=== PATIENT | female | born 1960 | race Caucasian/White ===

== ENCOUNTER 2020-09-24 07:56 | Day surgery (SDC) | payer BC ==
[2020-09-24] MEDS ORDERED: Lidocaine 2% 100 MG/5 ML Syringe IVPUSH ONE (07:57)
[2020-09-24] MEDS ORDERED: Midazolam 1 MG/ML 2 ML SDV ONE (08:53)
[2020-09-24] MEDS ORDERED: Propofol 200 MG/20 ML SDV ONE (08:53)
[2020-09-24] MEDS ORDERED: Sodium Chloride 0.9% 10 ML Syringe FLUSH PRN (09:00)
[2020-09-24] MEDS ORDERED: Lactated Ringers 1,000 ML IV SCH (09:00)
--- NOTE | 2020-09-24 09:07 | PCM.PN ---
- General Info Date of Service: 09/24/20 - Review of Systems Systems Review Comment:: 59 y/o female here for screening colonoscopy. She is medically stable to proceed. Her recent H and P is reviewed and no significant changes are noted. I have discussed the proposed colonoscopy with the patient. Risks such as but not limited to bleeding and GI injury discussed and she agrees to proceed. - Patient Data Vitals - Most Recent: Last Vital Signs Temp 96.6 F L 09/24/20 08:03 Pulse 81 09/24/20 08:03 Resp 18 09/24/20 08:03 BP 154/85 H 09/24/20 08:03 Pulse Ox 97 09/24/20 08:03 Weight - Most Recent: 113.398 kg Med Orders - Current: Current Medications Lactated Ringer's (Ringers, Lactated) 1,000 mls @ 50 mls/hr IV ASDIRECTED COUNT INCLUDES THE [facility] Last Admin: 09/24/20 08:29 Dose: 50 mls/hr Documented by: Sodium Chloride (Sodium Chloride 0.9% 10 Ml Syringe) 10 ml FLUSH Q8HR PRN PRN Reason: keep vein open Discontinued Medications Midazolam HCl (Midazolam 1 Mg/Ml 2 Ml Sdv) Confirm Administered Dose 2 mg .ROUTE .STK-MED ONE Stop: 09/24/20 08:54 Propofol (Propofol 200 Mg/20 Ml Sdv) Confirm Administered Dose 400 mg .ROUTE .STK-MED ONE Stop: 09/24/20 08:54 Sepsis Event Note - Focused Exam Vital Signs: Vital Signs Temp Pulse Resp BP Pulse Ox 09/24/20 08:03 96.6 F L 81 18 154/85 H 97 - Problem List Review Problem List Initiated/Reviewed/Updated: Yes - My Orders Last 24 Hours: My Active Orders 09/24/20 Breakfast Nothing Per Oral Diet [DIET] 09/24/20 09:00 Patient to Empty Bladder [RC] ASDIRECTED Peripheral IV Care [RC] . DIRECTED Lactated Ringers [Ringers, Lactated] 1,000 ml IV ASDIRECTED Sodium Chloride 0.9% [Saline Flush] 10 ml FLUSH Q8HR PRN Peripheral IV Insertion Adult [OM.PC] Routine 09/24/20 09:45 Verify Patient Consent Obtain [RC] ASDIRECTED - Assessment Assessment:: Colon Cancer Screening - Plan Plan:: Colonoscopy
--- NOTE | 2020-09-24 09:33 | PCM.OPNOTE ---
- General Post-Op/Procedure Note Date of Surgery/Procedure: 09/24/20 Operative Procedure(s): Colonoscopy Findings: Normal Colon Pre Op Diagnosis: Colon Cancer Screening Post-Op Diagnosis: Normal Colon Anesthesia Technique: MAC Primary Surgeon: Eric Chu Pathology: none EBL in mLs: 0 Complications: None Condition: Good
[2020-09-24] MEDS ORDERED: Ondansetron 4 MG/2 ML SDV IVPUSH PRN (10:07)
--- NOTE | 2020-09-24 14:04 | OR ---
DATE OF SURGERY: 09/24/2020 SURGEON: Eric Chu MD PREOPERATIVE DIAGNOSIS: Colon cancer screening. POSTOPERATIVE DIAGNOSIS: Normal colon. OPERATION PERFORMED: Colonoscopy. INDICATIONS FOR SURGERY: This 59-year-old female presents today for colon screening colonoscopy. It has been approximately 10 years since her last colonoscopy. FINDINGS: The patient's colon appears normal. No signs of polyps or inflammation is seen. DESCRIPTION OF PROCEDURE: The patient is taken to the operating room. She was given intravenous sedation and with her in the left lateral decubitus position, digital rectal exam was performed showing no rectal masses. The Olympus colonoscope was inserted into the rectum. Retroflexed examination of the rectal canal is performed. The scope was then carefully advanced under direct visualization through the entire length of the colon until the cecum is reached. Cecal acquisition is confirmed by noting the normal internal cecal anatomy including the appendiceal orifice and the ileocecal valve. The ileocecal valve was cannulated and the terminal ileum examined and appeared normal. The scope was then slowly withdrawn sequentially re-examining the colonic segments until the entire colon and rectum had been fully examined. The scope was removed and the patient was taken from the operating room in satisfactory condition. ESTIMATED BLOOD LOSS: Zero. COMPLICATIONS: None. PROGNOSIS: Good. /[id number]/MODL
== END 2020-09-24 11:40 | disposition home or self-care (01) ==
LOC: KA.SDS 07:56
PROVIDERS: ATTEND Surgery
DX: Z12.11 Encounter for screening for malignant neoplasm of colon (principal); E11.9 Type 2 diabetes mellitus without complications; R73.02 Impaired glucose tolerance (oral); I10 Essential (primary) hypertension; Z87.891 Personal history of nicotine dependence
CPT/HCPCS: 00812; J2250; J2405; J2704; J7120

== ENCOUNTER 2021-09-13 18:18 | Emergency (ER) | payer BC ==
[2021-09-13] MEDS: Sodium Chloride 0.9% 1,000 ML IV ONE (18:40)
[2021-09-13] MEDS: Ketorolac 30 MG/ML SDV IVPUSH ONE (18:41)
[2021-09-13 19:23] LABS: ANION GAP 13.6 mmol/L (5-15)
[2021-09-13] MEDS: traMADol 50 MG Tab PO ONE (19:57)
== END 2021-09-13 20:00 | disposition home or self-care (01) ==
LOC: KA.ED 18:18
DX: N13.2 Hydronephrosis with renal and ureteral calculous obstruction (principal); E11.9 Type 2 diabetes mellitus without complications; Z79.84 Long term (current) use of oral hypoglycemic drugs
CPT/HCPCS: 36415; 74176; 80053; 81001; 83690; 85025; 96374; 99284; 99284-25; J1885; J7030

== ENCOUNTER 2023-06-30 09:59 | Emergency (ER) | payer BC ==
[2023-06-30 10:52] LABS: BASOPHILS ABSOLUTE AUTO 0.03 10^3/uL (0.00-0.10); BASOPHILS PERCENT AUTO 0.3 % (0.0-1.0); EOSINOPHILS ABSOLUTE AUTO 0.24 10^3/uL (0.10-0.30); EOSINOPHILS PERCENT AUTO 2.7 % (1.0-3.0); HEMATOCRIT 40.2 % (37.0-47.0); HEMOGLOBIN 12.9 g/dL (12.0-16.0); IMMATURE GRAN ABSOLUTE AUTO 0.02 10^3/uL (0.00-0.50); IMMATURE GRAN PERCENT AUTO 0.2 % (0.0-5.0); LYMPHOCYTES ABSOLUTE AUTO 2.51 10^3/uL (1.00-4.00); LYMPHOCYTES PERCENT AUTO 27.9 % (20.0-40.0); MEAN CORPUSCULAR HEMOGLOBIN 27.9 pg (27.0-31.0); MEAN CORPUSCULAR HGB CONC 32.1 g/dL (32.0-36.0); MEAN PLATELET VOLUME 9.7 fL (7.4-10.4); MONOCYTES ABSOLUTE AUTO 0.66 10^3/uL (0.10-0.80); MONOCYTES PERCENT AUTO 7.3 % (2.0-8.0); NEUTROPHILS ABSOLUTE AUTO 5.53 10^3/uL (2.50-7.00); NEUTROPHILS PERCENT AUTO 61.6 % (50.0-70.0); PLATELET COUNT,PLT 275 10^3/uL (150-400); RED BLOOD CELL COUNT 4.62 10^6/uL (3.80-5.50); RED CELL DISTRIBUTION WIDTH 13.4 % (11.5-14.5); WHITE BLOOD CELL COUNT,WBC 8.99 10^3/uL (5.00-10.00)
[2023-06-30 11:10] LABS: ALBUMIN 3.53 g/dL (3.40-5.00); ANION GAP 14.5 mmol/L (5-15); BILIRUBIN TOTAL 0.5 mg/dL (0.2-1.0); CALCIUM 8.5 mg/dL (8.7-10.3); CARBON DIOXIDE,CO2 26.9 mmol/L (21.0-32.0); CREATININE 0.88 mg/dL (0.51-1.17); EST CRCL DRUG DOSING (CG) 57.97 mL/min; POTASSIUM,K 4.4 mmol/L (3.5-5.1); PROTEIN TOTAL,TP 7.3 g/dL (6.4-8.2)
[2023-06-30] MEDS: diphenhydrAMINE 50 MG/ML SDV IVPUSH ONE (11:18)
[2023-06-30] MEDS: Ketorolac 30 MG/ML SDV IVPUSH ONE (11:18)
[2023-06-30] MEDS: Sodium Chloride 0.9% 1,000 ML IV ONE (11:18)
[2023-06-30] MEDS: Ondansetron 4 MG/2 ML SDV IVPUSH ONE (11:19)
== END 2023-06-30 13:25 | disposition home or self-care (01) ==
LOC: KA.ED 09:59
DX: R51.9 Headache, unspecified (principal); R11.0 Nausea; E11.9 Type 2 diabetes mellitus without complications; Z79.899 Other long term (current) drug therapy; Z79.84 Long term (current) use of oral hypoglycemic drugs; Z86.19 Personal history of other infectious and parasitic diseases
CPT/HCPCS: 36415; 80053; 84484; 85025; 96374; 96375; 99284-25; J1200; J1885; J2405; J7030

== ENCOUNTER 2024-09-13 07:25 | Emergency (ER) | payer BC ==
[2024-09-13] MEDS ORDERED: Sodium Chloride 0.9% 10 ML Syringe FLUSH PRN (07:52)
[2024-09-13 08:09] LABS: BASOPHILS ABSOLUTE AUTO 0.03 10^3/uL (0.00-0.10); BASOPHILS PERCENT AUTO 0.2 % (0.0-1.0); EOSINOPHILS ABSOLUTE AUTO 0.22 10^3/uL (0.10-0.30); EOSINOPHILS PERCENT AUTO 1.6 % (1.0-3.0); HEMOGLOBIN 13.4 g/dL (12.0-16.0); IMMATURE GRAN ABSOLUTE AUTO 0.06 10^3/uL (0.00-0.04); IMMATURE GRAN PERCENT AUTO 0.4 % (0.0-0.4); MEAN CORPUSCULAR HEMOGLOBIN 26.9 pg (27.0-31.0); MEAN CORPUSCULAR HGB CONC 31.9 g/dL (32.0-36.0); MEAN CORPUSCULAR VOLUME 84.3 fL (82.0-92.0); MEAN PLATELET VOLUME 9.6 fL (7.4-10.4); MONOCYTES ABSOLUTE AUTO 0.83 10^3/uL (0.10-0.80); MONOCYTES PERCENT AUTO 6.2 % (2.0-8.0); NEUTROPHILS ABSOLUTE AUTO 8.01 10^3/uL (2.50-7.00); NEUTROPHILS PERCENT AUTO 59.6 % (50.0-70.0); PLATELET COUNT,PLT 278 10^3/uL (150-400); RED BLOOD CELL COUNT 4.98 10^6/uL (3.80-5.50); RED CELL DISTRIBUTION WIDTH 15.1 % (11.5-14.5); WHITE BLOOD CELL COUNT,WBC 13.45 10^3/uL (5.00-10.00)
[2024-09-13 08:30] LABS: ALANINE AMINOTRANSFERASE,ALT 53 U/L (14-63); ALBUMIN 3.26 g/dL (3.40-5.00); ALKALINE PHOSPHATASE 123 U/L (46-116); ANION GAP 11.5 mmol/L (5-15); ASPARTATE AMNIOTRANSFERASE,AST 37 U/L (15-37); BILIRUBIN TOTAL 0.6 mg/dL (0.2-1.0); BLOOD UREA NITROGEN,BUN 12 mg/dL (7-18); CARBON DIOXIDE,CO2 31.9 mmol/L (21.0-32.0); CHLORIDE,CL 101 mmol/L (98-107); CREATININE 0.81 mg/dL (0.51-1.17); EST CRCL DRUG DOSING (CG) 62.18 mL/min; GLUCOSE RANDOM 142 mg/dL (70-140); POTASSIUM,K 4.4 mmol/L (3.5-5.1); PROTEIN TOTAL,TP 7.6 g/dL (6.4-8.2); SODIUM,NA 140 mmol/L (136-145)
[2024-09-13 08:31] LABS: ESTIMATED GFR 82 mL/min (>=60)
[2024-09-13] MEDS: Enalaprilat 1.25 MG/ML SDV IVPUSH ONE ×2 (08:50→08:57)
[2024-09-13 09:48] VITALS: BP 143/78; PULSE 83
== END 2024-09-13 09:24 | disposition home or self-care (01) ==
LOC: KA.ED 07:25
DX: R07.2 Precordial pain (principal); I10 Essential (primary) hypertension; E11.9 Type 2 diabetes mellitus without complications; Z79.899 Other long term (current) drug therapy; Z79.84 Long term (current) use of oral hypoglycemic drugs
CPT/HCPCS: 36415; 71045; 80053; 84484; 85025; 93010; 96374; 99284; 99285-25; J3490